=== PATIENT | female | born 1960 | race Caucasian/White ===

== ENCOUNTER 2022-02-09 06:22 | Day surgery (SDC) | payer MEDICAID ==
[~2022-02-09] VITALS: Ht 172.7 cm; Wt 59.5 kg
[~2022-02-09 06:22] MED LIST: ASCO500C18 PO; MULT-933 PO; UBID100C45 PO
[2022-02-09] MEDS ORDERED: XYLI550M PO (06:53)
[2022-02-09] MEDS ORDERED: HYDR-3964 PO (06:53)
[2022-02-09] MEDS ORDERED: GABA300C PO (06:53)
[2022-02-09] MEDS ORDERED: LEVO25TA7 PO (06:53)
[2022-02-09] MEDS ORDERED: FLUOROURACIL TOP (06:53)
[2022-02-09] MEDS ORDERED: ibuprofen PO (06:53)
[2022-02-09 07:00] VITALS: BP 125/70
[2022-02-09 07:38] LABS: BASOPHILS % (AUTO) 0.6 % (0-1); EOSINOPHILS # (AUTO) 0.1 X10'3 (0-0.9); EOSINOPHILS % (AUTO) 1.6 % (0-6); HEMATOCRIT 35.4 % (35.0-45.0); HEMOGLOBIN 11.8 g/dl (12.0-16.0); LYMPHOCYTES % (AUTO) 18.3 % (21-51); MEAN CORPUSCULAR HGB CONC 33.5 g/dL (33.0-36.5); MEAN CORPUSCULAR VOLUME 86.5 FL (78-98); MEAN PLATELET VOLUME 6.4 FL (7.4-10.4); MONOCYTES # (AUTO) 0.4 X10'3 (0-0.9); MONOCYTES % (AUTO) 8.1 % (2-12); NEUTROPHILS # (AUTO) 3.8 X10'3 (1.8-7.7); NEUTROPHILS % (AUTO) 71.4 % (42-75); PLATELET COUNT 291 X10'3 (140-440); RED BLOOD COUNT 4.09 X10'6 (4.20-5.60); RED CELL DISTRIBUTION WIDTH 13.2 % (11.5-14.5); WHITE BLOOD COUNT 5.3 X10'3 (4.5-11.0)
--- NOTE | 2022-02-09 07:50 | NUR ---
Phoned Interventional radiology, spoke to Lc MOHAMUD, notified him of pt ride home situation. Pt planning to take cab to hotel where sig other Padilla will be. Lc will update Dr. Mobley. Alternatives discussed with pt and Lc MOHAMUD, ie, local only or local and pain medication only. Pt wants to get procedure done and Lc will discuss with Dr. Mobley.
--- NOTE | 2022-02-09 08:45 | NUR ---
Dr. Mobley aware of ride situation, agrees to precede with case, plan to use local anesthesia only.
[2022-02-09] MEDS ORDERED: normal saline 1000ml 1,000 ML IV SCH (09:10)
[2022-02-09] MEDS ORDERED: LIDOcaine 1%/PF 5ML 10 MG/ML VIAL ONE (11:01)
[2022-02-09 11:10] VITALS: BP 163/111
[2022-02-09 11:15] VITALS: BP 160/80
[2022-02-09 11:25] VITALS: BP 160/80
[2022-02-09 11:30] VITALS: BP 161/88
[2022-02-09 11:45] VITALS: BP 159/92
== END 2022-02-09 11:55 | disposition home or self-care (01) ==
LOC: SSTAY O 06:22
PROVIDERS: ATTEND Radiology Diagnostic Radiology
DX: M79.89 Other specified soft tissue disorders (principal); C49.0 Malignant neoplasm of connective and soft tissue of head, face and neck; E03.9 Hypothyroidism, unspecified; Z85.21 Personal history of malignant neoplasm of larynx; Z98.890 Other specified postprocedural states; Z79.899 Other long term (current) drug therapy
CPT/HCPCS: 10005; 36415; 85025; J3490; J7030; Z7610; 20206